=== PATIENT | female | born 1945 | race Caucasian/White ===

== ENCOUNTER → 2016-10-13 | Outpatient (CLI) | payer MEDICARE ==
[2015-01-31 06:08] VITALS: BP 92/43
[~2016-10-13] MED LIST: ATOR40TA59 PO; CALC-98 PO; LISI-334 PO; MELO15TA6 PO; MULT1TAB52 PO; OXYB5TAB7 PO; OXYC-323 PO; WARF5TAB PO
--- NOTE | 2016-10-13 13:33 | EKG ---
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
[2016-10-13 13:45] LABS: BASO % 1 % (0-3); EOS % 1 % (0-3); HEMATOCRIT 43.6 % (36.0-47.0); HEMOGLOBIN 14.3 g/dL (12.0-15.5); LYMPH % 35 % (24-48); MEAN CORPUSCULAR HEMOGLOBIN 30 pg (25-35); MEAN CORPUSCULAR HGB CONC 33 g/dL (31-37); MEAN CORPUSCULAR VOLUME 91 fL (79-100); MONO % 7 % (0-9); NEUT % 56 % (31-73); PLATELET COUNT 250 x10^3/uL (140-400); RED BLOOD COUNT 4.79 x10^6/uL (3.50-5.40); RED CELL DISTRIBUTION WIDTH 13.3 % (11.5-14.5); WHITE BLOOD COUNT 5.7 x10^3/uL (4.0-11.0)
[2016-10-13 13:55] LABS: PROTHROMBIN TIME PATIENT 12.3 SEC (11.7-14.0)
[2016-10-13 14:01] LABS: BILIRUBIN,URINE NEGATIVE (NEG); GLUCOSE,URINE NEGATIVE (NEG); NITRITE,URINE NEGATIVE (NEG); PROTEIN,URINE NEGATIVE (NEG-TRACE); UROBILINOGEN,URINE 0.2 mg/dL (0.2 mg/dL)
[2016-10-13 14:01] LABS: ALBUMIN 3.8 g/dL (3.4-5.0); CALCIUM 9.3 mg/dL (8.5-10.1); CREATININE 0.8 mg/dL (0.6-1.0); GFR 70.3; POTASSIUM 4.2 mmol/L (3.5-5.1)
[2016-10-13 14:31] LABS: BACTERIA,URINE 0 /HPF (0-FEW); RBC,URINE 0 /HPF (0-2); SQUAMOUS EPITHELIAL CELL,UR OCC /LPF; WBC,URINE OCC /HPF (0-4)
--- NOTE | 2016-10-13 15:39 | RAD ---
Chest, 2 views, 10/13/2016: History: Preop evaluation for knee surgery. Comparison is made to a study from 01/15/2015. The heart size is normal. There is calcific plaquing of the aorta. The pulmonary vascularity is within normal limits. No pulmonary infiltrates are seen. There is no evidence of pleural fluid. IMPRESSION: No acute cardiopulmonary abnormality is detected.
== END | disposition home or self-care (01) ==
LOC: SURGPAT 12:59
PROVIDERS: ATTEND Orthopaedic Surgery
DX: Z01.818 Encounter for other preprocedural examination (principal)
CPT/HCPCS: 36415; 71020; 80048; 81001; 82040; 85027; 85610; 85651; 85730; 87641; 93005

== ENCOUNTER 2016-11-04 07:38 | Inpatient (IN) | payer MEDICARE ==
--- NOTE | 2016-11-03 16:53 | PDOC1 ---
History and Physical Date of Admission Date of Admission DATE: 11/04/16 Identification/Chief Complaint Chief Complaint right painful total knee arthroplasty Source Source: Chart review History of Present Illness History of Present Illness Cally is a 71 years old and had right total knee arthroplasty by me on 01/30/15. She has had instability since then, but no other problems. She denies any evidence of infection in either area operatively or now. No fevers chills or significant swelling. She has tried bracing for the knee which helped her symptoms but she doesn't like wearing the brace all the time. We have discussed revision surgery previously, presumably to a thicker polyethylene and perhaps to a more constrained polyethylene and she would like to proceed. She is here today to schedule that. Past Medical History Cardiovascular: HTN, Hyperlipidemia Pulmonary: No pertinent hx CENTRAL NERVOUS SYSTEM: Other GI: No pertinent hx Heme/Onc: No pertinent hx Hepatobiliary: No pertinent hx Psych: No pertinent hx Musculoskeletal: Osteoarthritis Rheumatologic: No pertinent hx Infectious disease: No pertinent hx Renal/: No pertinent hx Endocrine: No pertinent hx Past Surgical History Past Surgical History: Total knee replacement (right-01/30/15) Family History Family History: Heart Disease Social History Smoke: No ALCOHOL: none Drugs: None Current Medications Current Medications Current Medications Ondansetron HCl (Zofran) 4 mg PRN Q6HRS PRN IV Nausea; Start 11/04/16 at 07:00 ; Stop 11/04/16 at 18:00 Fentanyl Citrate (Fentanyl 2ml Vial) 25 mcg PRN Q5MIN PRN IV MILD PAIN; Start 11/04/16 at 07:00; Stop 11/04/16 at 18:00 Fentanyl Citrate (Fentanyl 2ml Vial) 50 mcg PRN Q5MIN PRN IV MODERATE PAIN; Start 11/04/16 at 07:00; Stop 11/04/16 at 18:00 Morphine Sulfate 1 mg 1 mg PRN Q10MIN PRN IV SEVERE PAIN; Start 11/04/16 at 07: 00; Stop 11/04/16 at 18:00 Lactated Ringer's (Iv Lactated Ringers) 1,000 ml @ 30 mls/hr Q24H IV ; Start at 07:00; Stop 11/04/16 at 18:59 Lidocaine HCl 2 ml 1X PRN PRN ID IV START; Start 11/04/16 at 07:00; Stop at 18:00 Hydromorphone HCl (Dilaudid) 0.5 mg PRN Q10MIN PRN IV SEVERE PAIN, Second choice; Start 11/04/16 at 07:00; Stop 11/04/16 at 18:00 Prochlorperazine Edisylate 5 mg 5 mg PACU PRN PRN IV NAUSEA; Start 11/04/16 at 07:00; Stop 11/04/16 at 18:00 Morphine Sulfate/ Ketorolac Tromethamine/ Ropivacaine/ Epinephrine HCl/ Sodium Chloride (Morphine 5mg Syringe/Toradol/ Naropin 0.5%/ Adrenalin/Iv Sodium Chloride 0.9% 100ml) 100.5 ml @ 100.5 mls/ hr 1X PERIOP ONCE INT ART ; Start 11/04/16 at 06:00; Stop 11/04/16 at 06:59 Active Scripts Active Reported Calcium + Vitamin D Tablet (Calcium Carbonate/Vitamin D3) 1 Each Tablet 1 Each PO BID LAST DOSE GIVEN: DATE:02-02-15 TIME:9:00 a.m. NEXT DOSE DUE: DATE:02-03-15 TIME:9:00 a.m. Atorvastatin Calcium 40 Mg Tablet 1 Tab PO HS LAST DOSE GIVEN: DATE:02-01-15 TIME:9:00 p.m. NEXT DOSE DUE: DATE:02-02-15 TIME:9:00 p.m. Lisinopril 20 Mg Tablet 1 Tab PO HS LAST DOSE GIVEN: DATE:02-01-15 TIME:9:00 p.m. NEXT DOSE DUE: DATE:02-02-15 TIME:9:00 p.m. Check BP before taking medicine hold if BP low. Below 110 systolic Oxybutynin Chloride 5 Mg Tablet 1 Tab PO DAILY LAST DOSE GIVEN: DATE:02-02-15 TIME:9:00 a.m. NEXT DOSE DUE: DATE:02-03-15 TIME:9:00 a.m. Allergies Allergies: Coded Allergies: Sulfa (Sulfonamide Antibiotics) (Verified Allergy, Intermediate, HIVES, ) adhesive (Verified Allergy, Intermediate, 10/13/16) makes skin red Physical Exam General: Alert, Oriented X3, Cooperative, No acute distress HEENT: Atraumatic, EOMI Lungs: Normal air movement Heart: RRR Abdomen: Soft Extremities: No clubbing, No cyanosis, Normal pulses Skin: No rashes, No breakdown, No significant lesion Neuro: Normal speech, Sensation intact Psych/Mental Status: Mental status NL, Mood NL Images Images IMAGING REPORT 45 PA weightbearing view of both knees, lateral, and patella view of the right knee. Clinical information: Instability right total knee arthroplasty Comparison: January 2015, and January 2016 Findings Bones: A cemented total knee arthroplasty is seen. There is slight lucency underneath the patella which is probably related to surgical technique and is unchanged from January 2016. Subtle patellar loosening cannot be excluded. The tibial and femoral components are unchanged in position and showed no distinct lucency or subsidence or malalignment. There is a left unicondylar arthroplasty which also appears unchanged from prior films. Joints: The prosthetic joint spaces are normal and unchanged Soft tissue: Normal. Impression: Total knee arthroplasty of the right knee without definitive or malalignment. Dictated and Signed Using Voice Recognition Software Dell Mensah MD VTE Prophylaxis Ordered VTE Prophylaxis Devices: Yes VTE Pharmacological Prophylaxi: Yes Assessment/Plan Assessment/Plan She has excessive varus/valgus laxity. Dr. Mensah expects revision of one component, just the polyethylene can solve this. Presumably we would go to a slightly thicker component, and also to a constrained posterior other than the unconstrained post she has currently. She might lose a little bit of flexion or extension but I think her symptoms will be drastically improved. Dr. Mensah and the patient discussed the potential risks that she would need more than one component revised, and the usual risks of infection, neurovascular injury, bleeding, blood clots, or other potential surgical or anesthetic complications. She does not need to attend the preoperative rehabilitation class but should do all of the usual labs and joint center workup. She stated understanding of the risks, benefits, and alternatives and desires to proceed. She has no evidence of infection, but I will of pain C reactive protein and erythrocyte sedimentation rate as part of her preoperative workup. If those are abnormal we may want to consider getting a bone scan or joint aspiration. JESSA MCDUFFIE Nov 03, 2016 16:52
[~2016-11-04] VITALS: Ht 162.6 cm; Wt 67.6 kg
[2016-11-04] VITALS (8 sets, daily range): BP systolic 106–115; BP diastolic 52–64
[~2016-11-04 07:38] MED LIST changes: +CEFAZOLIN 2GM PREMIX 50 ML IV PRN; +FENTANYL PF 100 MCG/2 ML VIAL. IV PRN; +HYDROCODONE/APAP 7.5/325MG TABLET. PO PRN; +HYDROMORPHONE 2 MG/ML VIAL. IV PRN; +IV RINGERS,LACTATED 1000ML 1,000 ML IV SCH; +LIDOCAINE 1% 1 ML SYRINGE. ID PRN; -MELO15TA6 PO; +MELOXICAM 7.5 MG TABLET PO PRN; +MORPHINE SULFATE 2 MG/ML DISP.SYRIN. IV PRN; +MORPHINE SULFATE 5 MG, KETOROLAC TROMETHAMINE 30 MG, ROPIVacaine 0.5% PF 60 ML, EPINEPH... INT ART ONE; +ONDANSETRON PF 4 MG/2 ML VIAL. IV PRN; +PROCHLORPERAZINE 10 MG/2 ML VIAL. IV PRN; +TOBRAMYCIN POWDER 1.2 GM VIAL. ONE; +TRANEXAMIC ACID 1,000 MG in IV NS 50ML -- 1ST BAG INJ ONE; +VANCOMYCIN 1 GM VIAL. ONE
[2016-11-04] MEDS ORDERED: TRANEXAMIC ACID 1,000 MG in IV NS 50ML -- 2ND BAG INJ ONE (08:00)
[2016-11-04] MEDS ORDERED: MELO15TA6 PO (08:05)
[2016-11-04] MEDS ORDERED: PROPOFOL 20 ML IV ONE (08:53)
[2016-11-04] MEDS ORDERED: LIDOCAINE 2% 100 MG/5 ML DISP.SYRIN. ONE (08:53)
[2016-11-04] MEDS ORDERED: ONDANSETRON PF 4 MG/2 ML VIAL. ONE (08:54)
[2016-11-04] MEDS ORDERED: DEXAMETHASONE SOD PHOS 20 MG/5 ML VIAL. ONE (08:54)
[2016-11-04] MEDS ORDERED: FAMOTIDINE 20 MG/2 ML VIAL ONE (08:54)
[2016-11-04] MEDS ORDERED: ROCURONIUM 50 MG/5 ML VIAL. ONE (08:54)
[2016-11-04] MEDS ORDERED: FENTANYL PF 100 MCG/2 ML VIAL. ONE ×2 (08:54→10:56)
[2016-11-04] MEDS ORDERED: EPHEDRINE PF IN SALINE 50 MG/5 ML DISP.SYRIN. IV ONE (10:44)
[2016-11-04] MEDS ORDERED: GLYCOPYRROLATE 1 MG/5 ML VIAL. ONE (11:09)
[2016-11-04] MEDS ORDERED: NEOSTIGMINE METHYLSULFATE 5 MG/5 ML SYRINGE. ONE (11:09)
[2016-11-04] MEDS ORDERED: SEVOFLURANE 61 TO 120 MINUTES. IH ONE (11:27)
--- NOTE | 2016-11-04 11:36 | PDOC4 ---
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 She had a right total knee arthroplasty in January 2015, and has had symptoms of varus/valgus instability of the knee. Bracing improves her symptoms but she doesnt like wearing the brace all the time. She has had no evidence of infection. Findings: Laxity of the total knee arthroplasty regarding varus/valgus stress Implants used: Size 3-4 18 mm Gretchen II constrained articular insert Procedure in Detail: The patient was identified in the preoperative holding area, and the correct right extremity was marked by me. The patient was taken to the operating room where the patient was anesthetized by the Department of Anesthesia. Preoperative antibiotics were given intravenously. Tranexamic acid 1 g was given intravenously for intraoperative hemostasis. A "time-out" procedure was performed. The patient was positioned supine on the operative table with a tourniquet on the upper thigh. The limb was thoroughly prepped and draped in sterile fashion. An impervious stockinet and adhesive drape were used such that the skin was entirely covered. An Morrison leg decker was used. The operating team wore personal exhaust-ventilated hoods. The tourniquet was inflated to 350 mm Hg. A midline skin incision was made with a scalpel using the patella and tibial tubercle as landmarks and reusing the same original incision scar. Electrocautery was used for hemostasis. My shipping assistant used rake retractors. A medial parapatellar arthrotomy incision was used with extension into the distal quadriceps tendon. Transparent benign synovial fluid was noted with no evidence of infection. The patella was retracted laterally and Hohmann retractors were now used by my shipping assistant. Synovium around the patella was excised. The patellar component was stable to probing. Intraoperative stress testing did show 23 millimeters of varus/valgus laxity, but otherwise well-balanced. The prior 15 mm polyethylene was removed. The femoral complement was examined and probed and was stable and well aligned. The tibial baseplate component was stable to probing, and well aligned. A trial polyethylene 18 mm thick and with a constrained articular post was used. This achieved excellent varus/valgus stability, and full extension of the leg. The trial component was removed. Copious irrigation was performed using the VGBio interpulse device and saline. Outer gloves were changed. The final 18 mm constrained polyethylene was secured into place. The tourniquet was released. Bovie electrocautery was used for hemostasis. Periarticular injection was used, with ropivacaine, epinephrine, Toradol and morphine. Tranexamic acid was redosed. The knee was reduced a final time and and showed very excellent stability throughout the range of motion. Thorough irrigation was used. Hemovac and pain catheter were used.The arthrotomy was closed with interrupted [id number] # 1 PDS suture. The capsulotomy was then run with #1 PDS. The subcutaneous tissues were closed with #2-0 Vicryl by my shipping assistant. The skin was reapproximated with 3-0 Monocryl and Steri-Strips by my shipping assistant. A bulky sterile dressing was applied. Needle and sponge counts were correct. JUAN JOSÉ MENSAH MD Nov 04, 2016 11:36
[2016-11-04] MEDS ORDERED: HYDROCODONE/APAP 7.5/325MG TABLET. PO PRN (12:00)
[2016-11-04] MEDS ORDERED: METOCLOPRAMIDE HCL 10 MG/2 ML VIAL. IV PRN (12:00)
[2016-11-04] MEDS ORDERED: MORPHINE SULFATE 10 MG/ML VIAL. IV PRN (12:00)
[2016-11-04] MEDS ORDERED: MORPHINE SULFATE 2 MG/ML DISP.SYRIN. IV PRN (12:00)
[2016-11-04] MEDS ORDERED: FENTANYL PF 100 MCG/2 ML VIAL. IV PRN ×2 (12:00)
[2016-11-04] MEDS ORDERED: PROCHLORPERAZINE 5 MG TABLET. PO PRN (12:00)
[2016-11-04] MEDS ORDERED: TRAMADOL 50 MG TABLET. PO PRN ×2 (12:00)
[2016-11-04] MEDS ORDERED: DIPHENHYDRAMINE 50 MG/ML VIAL IV PRN (12:00)
[2016-11-04] MEDS ORDERED: ACETAMINOPHEN 325 MG TABLET. PO PRN (12:00)
[2016-11-04] MEDS ORDERED: DEXTROSE 50% 25 GM / 50ML DISP.SYRIN. IV PRN (12:00)
[2016-11-04] MEDS ORDERED: CALCIUM CARBONATE 500 MG TAB.CHEW PO PRN (12:00)
[2016-11-04] MEDS ORDERED: ZOLPIDEM 5 MG TABLET. PO PRN (12:00)
[2016-11-04] MEDS ORDERED: 0.9 % SODIUM CHLORIDE 10 ML DISP.SYRIN. IV PRN (12:00)
[2016-11-04] MEDS ORDERED: MORPHINE SULFATE 4 MG/ML DISP.SYRIN. IV PRN ×2 (12:00)
[2016-11-04] MEDS ORDERED: PROCHLORPERAZINE 10 MG/2 ML VIAL. IV PRN (12:00)
[2016-11-04] MEDS: FENTANYL PF 100 MCG/2 ML VIAL. IV PRN ×2 (12:31→12:41)
--- NOTE | 2016-11-04 12:41 | RAD ---
Right knee, 2 views, 11/04/2016: History: Postop evaluation A total knee prosthesis is in place. A surgical drain overlies the operative site anteriorly. There is no evidence of a retained surgical instrument, needle or radiopaque sponge on these 2 views.
[2016-11-04] MEDS: IV DEXTROSE 5 %-0.45 % NACL 1,000 ML IV SCH ×2 (14:23→21:52)
[2016-11-04] MEDS ORDERED: OXYB5TAB PO (14:51)
[2016-11-04] MEDS: CEFAZOLIN SODIUM 1 GM in IV NORMAL SALINE 50ML 50 ML IV SCH ×2 (16:02→21:02)
[2016-11-04] MEDS: CALCIUM CARB/VIT D3 500/200 TABLET PO SCH (16:58)
[2016-11-04] MEDS: FERROUS SULFATE 325 MG TABLET PO SCH (16:58)
[2016-11-04] MEDS: OXYCODONE/APAP 7.5/325 TABLET. PO PRN (17:43)
[2016-11-04] MEDS: KETOROLAC TROMETHAMINE 30 MG, BUPIVACAINE MPF 0.25% 20 ML, EPINEPHRINE 0.5 MG in TOTAL ... INT ART SCH (18:03)
[2016-11-04] MEDS: OXYBUTYNIN CHLORIDE 5 MG TABLET PO SCH (21:00)
[2016-11-04] MEDS: ASPIRIN ENTERIC COATED 325 MG TABLET.DR. PO SCH (21:02)
[2016-11-04] MEDS: ATORVASTATIN CALCIUM 40 MG TABLET. PO SCH (21:02)
[2016-11-04] MEDS: HYDROCODONE/APAP 10/325 TABLET. PO PRN (21:03)
[2016-11-04] MEDS: LISINOPRIL 20 MG TABLET PO SCH (21:03)
[2016-11-05] MEDS: HYDROCODONE/APAP 10/325 TABLET. PO PRN (02:58)
[2016-11-05 03:02] VITALS: BP 95/54
[2016-11-05] MEDS: CEFAZOLIN SODIUM 1 GM in IV NORMAL SALINE 50ML 50 ML IV SCH (04:16)
[2016-11-05] MEDS: KETOROLAC TROMETHAMINE 30 MG, BUPIVACAINE MPF 0.25% 20 ML, EPINEPHRINE 0.5 MG in TOTAL ... INT ART SCH (06:00)
[2016-11-05] MEDS ORDERED: MAGNESIUM HYDROXIDE 2,400 MG/30 ML ORAL.SUSP. PO PRN (06:00)
[2016-11-05 06:40] VITALS: BP 95/50
[2016-11-05] MEDS: IV DEXTROSE 5 %-0.45 % NACL 1,000 ML IV SCH ×2 (07:52→17:52)
[2016-11-05] MEDS: MULTIVITAMIN with MINERAL TABLET. PO SCH (08:39)
[2016-11-05] MEDS: FERROUS SULFATE 325 MG TABLET PO SCH ×2 (08:40→17:15)
[2016-11-05] MEDS: MELOXICAM 7.5 MG TABLET PO SCH (08:40)
[2016-11-05] MEDS: OXYBUTYNIN CHLORIDE 5 MG TABLET PO SCH ×2 (08:40→21:00)
[2016-11-05] MEDS: ASPIRIN ENTERIC COATED 325 MG TABLET.DR. PO SCH ×2 (08:40→21:00)
[2016-11-05] MEDS: CALCIUM CARB/VIT D3 500/200 TABLET PO SCH ×2 (08:40→17:15)
[2016-11-05] MEDS: SENNOSIDES/DOCUSATE 8.6/50MG TABLET. PO SCH (08:40)
[2016-11-05] MEDS: OXYCODONE/APAP 7.5/325 TABLET. PO PRN ×3 (09:16→17:15)
--- NOTE | 2016-11-05 10:00 | PDOC ---
PROGRESS NOTES Subjective Subjective Doing well. She mentions her face and chest have been slightly red since surgery. Objective Vital Signs Vital Signs Date Time Temp Pulse Resp B/P Pulse Ox O2 Delivery O2 Flow Rate FiO2 11/05/16 09:16 Room Air 11/05/16 06:40 98.4 72 18 95/50 96 98.4 11/04/16 12:06 10 Physical Exam Her face looks flushed around her nose and cheeks. No rash. Dressing dry. Pain catheter and Hemovac in place. Calf soft and nontender, with a negative Kalyani's sign. Good dorsiflexion and plantarflexion of the foot with no evidence of neurovascular injury or DVT. Imaging Postoperative x-rays reviewed by me, showing satisfactory total knee replacement , with no apparent complications. Assessment Assessment POD #1 revision one component (polyethylene) right TKA Problems: Plan Plan of Care Continue POC including DVT prophylaxis and physical therapy. Planning for discharge Thursday afternoon to home with outpatient PT at [facility]. JESSA MCDUFFIE Nov 05, 2016 10:00
[2016-11-05] MEDS ORDERED: BISACODYL 10 MG SUPP.RECT PR PRN (16:00)
[2016-11-05 18:15] VITALS: BP 90/59
[2016-11-05 20:45] VITALS: BP 108/59
[2016-11-05] MEDS: LISINOPRIL 20 MG TABLET PO SCH (21:00)
[2016-11-05] MEDS: ATORVASTATIN CALCIUM 40 MG TABLET. PO SCH (21:00)
[2016-11-06] MEDS: OXYCODONE/APAP 7.5/325 TABLET. PO PRN ×2 (02:53→20:53)
[2016-11-06] MEDS: IV DEXTROSE 5 %-0.45 % NACL 1,000 ML IV SCH (03:52)
[2016-11-06 06:00] VITALS: BP 104/53
[2016-11-06] MEDS: OXYCODONE/APAP 5/325 TABLET. PO PRN ×4 (06:10→17:23)
[2016-11-06 06:38] LABS: HEMATOCRIT 36.7 % (36.0-47.0); HEMOGLOBIN 12.1 g/dL (12.0-15.5)
[2016-11-06] MEDS: ASPIRIN ENTERIC COATED 325 MG TABLET.DR. PO SCH ×2 (08:05→20:53)
[2016-11-06] MEDS: OXYBUTYNIN CHLORIDE 5 MG TABLET PO SCH ×2 (08:05→20:53)
[2016-11-06] MEDS: SENNOSIDES/DOCUSATE 8.6/50MG TABLET. PO SCH (08:05)
[2016-11-06] MEDS: CALCIUM CARB/VIT D3 500/200 TABLET PO SCH ×2 (08:05→17:23)
[2016-11-06] MEDS: FERROUS SULFATE 325 MG TABLET PO SCH ×2 (08:05→17:23)
[2016-11-06] MEDS: MULTIVITAMIN with MINERAL TABLET. PO SCH (08:05)
[2016-11-06] MEDS: MELOXICAM 7.5 MG TABLET PO SCH (08:06)
--- NOTE | 2016-11-06 12:42 | PDOC ---
PROGRESS NOTES Subjective Subjective Mild pain. Flushed face and neck resolved. Objective Vital Signs Vital Signs Date Time Temp Pulse Resp B/P Pulse Ox O2 Delivery O2 Flow Rate FiO2 11/06/16 10:40 18 Room Air 11/06/16 06:10 93 11/06/16 06:00 98.8 77 104/53 98.8 11/04/16 12:06 10 Physical Exam Dressing dry. NVI. Pain cath and drain have been removed. Labs Laboratory Tests Test 11/06/16 06:05 Hemoglobin 12.1g/dL (12.0-15.5) Hematocrit 36.7% (36.0-47.0) Mean Corpuscular Hemoglobin Concent 33g/dL (31-37) Laboratory Tests Test 11/06/16 06:05 Hemoglobin 12.1g/dL (12.0-15.5) Hematocrit 36.7% (36.0-47.0) Mean Corpuscular Hemoglobin Concent 33g/dL (31-37) Imaging x-rays reviewed by me and show satisfactory poly exchange, and no change to other knee components. Assessment Assessment POD# 2 TKA revision one component Problems: Plan Plan of Care Discharge planning. Still unsteady walking. Probably can go home tomorrow. Cont PT and DVT prophylaxis. JUAN JOSÉ ANTONIO MD Nov 06, 2016 12:42
[2016-11-06] MEDS ORDERED: CALCIUM CARB/VIT D3 500/200 TABLET. ONE (17:21)
[2016-11-06 17:55] VITALS: BP 123/64
[2016-11-06] MEDS: LISINOPRIL 20 MG TABLET PO SCH (20:53)
[2016-11-06] MEDS: ATORVASTATIN CALCIUM 40 MG TABLET. PO SCH (20:53)
[2016-11-07] MEDS: OXYCODONE/APAP 7.5/325 TABLET. PO PRN ×4 (03:20→14:55)
[2016-11-07 06:25] VITALS: BP 108/54
[2016-11-07] MEDS ORDERED: CALCIUM CARB/VIT D3 500/200 TABLET. ONE (08:02)
[2016-11-07] MEDS: OXYBUTYNIN CHLORIDE 5 MG TABLET PO SCH (08:41)
[2016-11-07] MEDS: FERROUS SULFATE 325 MG TABLET PO SCH (08:41)
[2016-11-07] MEDS: CALCIUM CARB/VIT D3 500/200 TABLET PO SCH (08:41)
[2016-11-07] MEDS: MELOXICAM 7.5 MG TABLET PO SCH (08:42)
[2016-11-07] MEDS: ASPIRIN ENTERIC COATED 325 MG TABLET.DR. PO SCH (08:42)
[2016-11-07] MEDS: SENNOSIDES/DOCUSATE 8.6/50MG TABLET. PO SCH (08:42)
[2016-11-07] MEDS: MULTIVITAMIN with MINERAL TABLET. PO SCH (08:42)
[2016-11-07 10:10] LABS: HEMATOCRIT 38.1 % (36.0-47.0)
[2016-11-07] MEDS ORDERED: ASPI325T11 PO (12:06)
[2016-11-07] MEDS ORDERED: FERR-26 PO (12:06)
[2016-11-07] MEDS ORDERED: SENN1TAB7 PO (12:07)
[2016-11-07] MEDS ORDERED: SENN1TAB99 PO (12:07)
[2016-11-07 15:00] VITALS: BP 104/56
[2016-11-07] MEDS ORDERED: CALCIUM CARB/VIT D3 500/200 TABLET. PO SCH (17:00)
--- NOTE | 2016-11-10 10:17 | PDOC3 ---
Discharge Summary Visit Information Date of Admission: Nov 04, 2016 Date of Discharge: Nov 07, 2016 Admitting Diagnosis: failed right total knee arthroplasty Final Diagnosis Problems Medical Problems: (1) Failed total right knee replacement Status: Acute Brief Hospital Course Allergies Allergies Coded Allergies Type Severity Reaction Last Updated Verified Sulfa (Sulfonamide Antibiotics) Allergy Intermediate HIVES 11/04/16 Yes adhesive Allergy Intermediate 11/04/16 Yes Brief Hospital Course 71 year old who presented with failed right total knee arthroplasty, for elective revision right total knee arthroplasty. The patient underwent revision of one component (polyethylene) of right total knee arthroplasty under general anesthesia the day of admission. Perioperative antibiotics and DVT prophylaxis were used. Postoperatively physical therapy and case management were consulted. The patient progressed and is stable for discharge. Discharge Information Condition at Discharge: Stable Follow Up: Weeks (2) Disposition/Orders: D/C to Home Scheduled Aspirin (Aspirin Ec) 1 TAB PO BID (Reported) Atorvastatin Calcium (Atorvastatin Calcium) 1 TAB PO HS (Reported) Calcium Carbonate/Vitamin D3 (Calcium + Vitamin D Tablet) 1 EACH PO BID ( Reported) Ferrous Sulfate (Ferrous Sulfate) 1 TAB PO BID (Reported) Lisinopril (Lisinopril) 1 TAB PO HS (Reported) Meloxicam (Mobic) 1 TAB PO 1X (Reported) Oxybutynin Chloride (Oxybutynin Chloride Er) 5 MG PO DAILY (Reported) Sennosides/Docusate Sodium (Senna-Docusate Sodium Tablet) 1 EACH PO BID ( Reported) Miscellaneous Medications Sennosides/Docusate Sodium (Senna-Docusate Sodium Tablet) 1 EACH PO (Reported) Discontinued Medications Oxybutynin Chloride (Oxybutynin Chloride) 1 TAB PO DAILY (Reported) Discontinued Reason: WRONG ENTR Patient Instructions Patient Instructions Patient Instructions Continue to WBAT with walker. Keep dressing dry and intact. F/U with [facility] in 10-14 days. Call for appointment. Physical therapy for TKA Continue DVT prophylaxis. JESSA MCDUFFIE Nov 10, 2016 10:17
== END 2016-11-07 15:00 | disposition home or self-care (01) | DRG 468 ==
LOC: OPSVCIP 07:38 → 4 SOUTHEST 13:00
PROVIDERS: ADMIT Orthopaedic Surgery; ATTEND Orthopaedic Surgery
PROC: 0SWC0JZ Revision of Synthetic Substitute in Right Knee Joint, Open Approach (ICD-10-PCS; principal; 2016-11-04 09:45)
DX: T84.092A Other mechanical complication of internal right knee prosthesis, initial encounter (principal); Y83.1 Surgical operation with implant of artificial internal device as the cause of abnormal reaction of the patient, or of later complication, without mention of misadventure at the time of the procedure; I10 Essential (primary) hypertension; E78.5 Hyperlipidemia, unspecified; M19.90 Unspecified osteoarthritis, unspecified site; Z88.2 Allergy status to sulfonamides; Z91.048 Other nonmedicinal substance allergy status
CPT/HCPCS: 36415; 73560; 85014; 85018; 86850; 86900; 86901; J0171; J0690; J1100; J1885; J2270; J2405; J2704; J2710; J2795; J3010; J3260; J3370; J3490; J7120; S0028; 97116; 97150; 97530; 97535; C1769

== ENCOUNTER 2017-09-29 12:47 | Emergency (ER) | payer MEDICARE ==
[2017-09-29 13:11] LABS: ADD MAN DIFF? NO
[2017-09-29] MEDS ORDERED: HYDROmorphone 2 MG/ML VIAL IV/SQ ×2 (13:15)
[2017-09-29] MEDS ORDERED: 0.9 % SODIUM CHLORIDE 10 ML DISP.SYRIN. IV ×2 (13:15)
[2017-09-29 13:20] LABS: BASO % 0 % (0-3); EOS % 0 % (0-3); HEMATOCRIT 40.9 % (36.0-47.0); HEMOGLOBIN 13.9 g/dL (12.0-15.5); LYMPH # 0.6 x10^3/uL (1.0-4.8); LYMPH % 11 % (24-48); MEAN CORPUSCULAR HEMOGLOBIN 31 pg (25-35); MEAN CORPUSCULAR HGB CONC 34 g/dL (31-37); MEAN CORPUSCULAR VOLUME 90 fL (79-100); MONO # 0.6 x10^3/uL (0.0-1.1); MONO % 11 % (0-9); NEUT # 4.5 x10^3uL (1.8-7.7); NEUT % 78 % (31-73); PLATELET COUNT 225 x10^3/uL (140-400); RED BLOOD COUNT 4.57 x10^6/uL (3.50-5.40); RED CELL DISTRIBUTION WIDTH 13.3 % (11.5-14.5); WHITE BLOOD COUNT 5.7 x10^3/uL (4.0-11.0)
[2017-09-29] MEDS: IV NORMAL SALINE 1000ML BAG 1,000 ML IV ×2 (13:24)
[2017-09-29] MEDS: ASPIRIN CHEWABLE 81 MG TABLET. PO ×2 (13:24)
[2017-09-29 13:37] LABS: ANION GAP 12 (6-14); BLOOD UREA NITROGEN 12 mg/dL (7-20); CALCIUM 9.1 mg/dL (8.5-10.1); CARBON DIOXIDE 23 mmol/L (21-32); CHLORIDE 101 mmol/L (98-107); CREATININE 0.8 mg/dL (0.6-1.0); GFR 70.1; GLUCOSE 136 mg/dL (70-99); POTASSIUM 3.9 mmol/L (3.5-5.1); SODIUM 136 mmol/L (136-145)
[2017-09-29 13:42] LABS: ALBUMIN 3.2 g/dL (3.4-5.0); ALK PHOS 111 U/L (46-116); ALT (SGPT) 22 U/L (14-59); AST (SGOT) 23 U/L (15-37); DIRECT BILIRUBIN 0.1 mg/dL (0.0-0.2); LIPASE 114 U/L (73-393); MAGNESIUM 1.7 mg/dL (1.8-2.4); TOTAL BILIRUBIN 0.9 mg/dL (0.2-1.0); TOTAL PROTEIN 6.6 g/dL (6.4-8.2)
[2017-09-29 13:42] LABS: TROPONINI < 0.017 ng/mL (0.000-0.055)
[2017-09-29 13:46] LABS: THYROID STIM HORMONE (TSH) 0.986 uIU/mL (0.358-3.74)
[2017-09-29 13:50] LABS: CKMB MASS < 0.5 ng/mL (0.0-3.6); CREATINE KINASE 58 U/L (26-192)
[2017-09-29 13:50] LABS: NT-PRO BNP 248 pg/mL (0-124)
[2017-09-29 14:27] LABS: BILIRUBIN,URINE NEGATIVE (NEG); CLARITY,URINE CLEAR; COLOR,URINE YELLOW; GLUCOSE,URINE NEGATIVE (NEG); NITRITE,URINE NEGATIVE (NEG); PROTEIN,URINE NEGATIVE (NEG-TRACE); UROBILINOGEN,URINE 0.2 mg/dL (0.2 mg/dL)
[2017-09-29 14:36] LABS: INFLUENZA A PATIENT NEGATIVE (NEGATIVE)
[2017-09-29 14:37] LABS: INFLUENZA B PATIENT POSITIVE (NEGATIVE); OBC FLU VALID
[2017-09-29 14:38] LABS: BACTERIA,URINE 0 /HPF (0-FEW); RBC,URINE 0 /HPF (0-2); SQUAMOUS EPITHELIAL CELL,UR FEW /LPF
[2017-09-29] MEDS: IOHEXOL 300 MG/ML 100ML VIAL. IV ×2 (15:01)
== END 2017-09-29 16:36 | disposition home or self-care (01) ==
LOC: ER 12:47
DX: R07.9 Chest pain, unspecified (principal); J10.1 Influenza due to other identified influenza virus with other respiratory manifestations; M19.90 Unspecified osteoarthritis, unspecified site; E78.00 Pure hypercholesterolemia, unspecified; I10 Essential (primary) hypertension; Z79.82 Long term (current) use of aspirin; Z88.2 Allergy status to sulfonamides; Z91.048 Other nonmedicinal substance allergy status
CPT/HCPCS: 36415; 71045; 71275; 80048; 80076; 81001; 82553; 83690; 83735; 83880; 84443; 84484; 85025; 85379; 87086; 87804; 87804-59; 93005; 96360; 99285-25; J7030; Q9967

== ENCOUNTER → 2017-12-09 | Outpatient (CLI) | payer MEDICARE ==
[~2017-12-09] MED LIST changes: -ATOR40TA59 PO; -CALC-98 PO; -CEFAZOLIN 2GM PREMIX 50 ML IV PRN; -FENTANYL PF 100 MCG/2 ML VIAL. IV PRN; -HYDROCODONE/APAP 7.5/325MG TABLET. PO PRN; -HYDROMORPHONE 2 MG/ML VIAL. IV PRN; -IV RINGERS,LACTATED 1000ML 1,000 ML IV SCH; -LIDOCAINE 1% 1 ML SYRINGE. ID PRN; +LIDOCAINE 1% Multi-Dose 20 ML VIAL. INJ; +LIDOCAINE 1% PF 5 ML VIAL. INJ; +LIDOCAINE WITH 8.4% SOD BICARB 3 ML DISP.SYRIN. INJ; -LISI-334 PO; -MELOXICAM 7.5 MG TABLET PO PRN; -MORPHINE SULFATE 2 MG/ML DISP.SYRIN. IV PRN; -MORPHINE SULFATE 5 MG, KETOROLAC TROMETHAMINE 30 MG, ROPIVacaine 0.5% PF 60 ML, EPINEPH... INT ART ONE; -MULT1TAB52 PO; -ONDANSETRON PF 4 MG/2 ML VIAL. IV PRN; -OXYB5TAB7 PO; -OXYC-323 PO; -PROCHLORPERAZINE 10 MG/2 ML VIAL. IV PRN; -TOBRAMYCIN POWDER 1.2 GM VIAL. ONE; -TRANEXAMIC ACID 1,000 MG in IV NS 50ML -- 1ST BAG INJ ONE; -VANCOMYCIN 1 GM VIAL. ONE; -WARF5TAB PO
== END | disposition home or self-care (01) ==
LOC: US 10:24
DX: E04.1 Nontoxic single thyroid nodule (principal); E78.00 Pure hypercholesterolemia, unspecified; I10 Essential (primary) hypertension; M19.90 Unspecified osteoarthritis, unspecified site; Z96.653 Presence of artificial knee joint, bilateral
CPT/HCPCS: 60300; 76942

== ENCOUNTER → 2018-10-05 | Outpatient (CLI) | payer MEDICARE ==
[2017-09-29 16:30] VITALS: BP 100/56
[~2018-10-05] MED LIST changes: +ASPI325T11 PO; +ATOR40TA59 PO; +CALC-98 PO; +FERR325T14 PO; -LIDOCAINE 1% Multi-Dose 20 ML VIAL. INJ; -LIDOCAINE 1% PF 5 ML VIAL. INJ; -LIDOCAINE WITH 8.4% SOD BICARB 3 ML DISP.SYRIN. INJ; +LISI-334 PO; +MELO15TA6 PO; +MULT1TAB52 PO; +OSEL75CA PO; +OXYB5TAB PO; +OXYB5TAB7 PO; +OXYC1TAB15 PO; +SENN1TAB8 PO; +SENN1TAB99 PO; +WARF-78 PO
--- NOTE | 2018-10-05 15:26 | RAD ---
Thyroid ultrasound, 10/05/2018: History: Follow-up thyroid nodules Comparison is made to an outside study from 10/21/2017. The right lobe of the gland measures 4.5 x 1.7 x 1.7 cm while the left lobe of gland measures 4.6 x 1.6 x 1.5 cm. There are numerous bilateral nodules. The largest nodule lies in the lower pole of the right lobe of the gland. It measures 1.1 cm in greatest diameter and is unchanged since the previous study. It is slightly hypoechoic relative to the remainder of the gland and mildly heterogeneous. Its margins are slightly irregular. It is wider than tall. No internal calcifications are seen. There are numerous other small subcentimeter nodules in both lobes of the gland. None of these demonstrate highly suspicious characteristics or significant interval enlargement. There is a small cluster of calcifications in the upper pole the left lobe of the gland measuring 2-3 mm. There is posterior acoustic shadowing. No definite associated nodule is seen. This finding is also unchanged since the previous study. IMPRESSION: Multinodular thyroid gland, stable since 10/21/2017.
== END | disposition home or self-care (01) ==
LOC: US 09:59
PROVIDERS: ATTEND Family Medicine
DX: E04.2 Nontoxic multinodular goiter (principal)
CPT/HCPCS: 76536

== ENCOUNTER → 2019-10-19 | Outpatient (CLI) | payer MEDICARE ==
[2017-09-29 16:30] VITALS: BP 100/56
[~2019-10-19] MED LIST changes: +OXYB-36 PO; -OXYB5TAB PO; +OXYB5TAB10 PO; -OXYB5TAB7 PO; +SENN-161 PO; -SENN1TAB8 PO
--- NOTE | 2019-10-19 12:45 | KCIC ---
THYROID ULTRASOUND History: Thyroid nodules Comparison: 10/05/2018 Findings: Multiple sonographic images of the thyroid gland are submitted. Right lobe measured 5.4 x 1.8 x 1.8 cm. Left lobe measured 5 x 1.5 x 1.4 cm. Dominant heterogeneous nodule of the mid to inferior right gland measures about 1.1 x 0.8 x 0.6 cm, associated vascularity on color Doppler imaging. There is a small heterogeneous nodule of the inferior right gland up to 0.6 x 0.5 x 0.4 cm, also small lesion of the mid anterior right gland up to 0.6 x 0.5 to 0.3 cm with mild vascularity at the periphery. There is small nodule of the mid left gland up to 0.7 x 0.4 x 0.3 cm. There is a partially cystic lesion of the mid to inferior left gland about 0.7 x 0.4 x 0.5 cm. There is a 0.6 x 0.6 x 0.3 cm nodule of the left aspect of the isthmus, mild associated vascularity primarily at the periphery. Nodules have not convincingly changed. Impression: 1. Bilateral thyroid nodules have not convincingly changed, largest on the right up to 1.1 cm. Electronically signed by: Kamran Mendez MD (10/19/2019 12:42 PM) [id number]
== END ==
LOC: KCIC US 10:57
PROVIDERS: ATTEND Family Medicine
DX: E04.2 Nontoxic multinodular goiter (principal)
CPT/HCPCS: 76536